=== PATIENT | male | born 1960 | race Two or more races ===

== ENCOUNTER 2020-07-21 14:15 | Outpatient (CLI) | payer BC | END 2020-07-21 23:59 | disposition home or self-care (01) | LOC: MSC 14:15 | PROVIDERS: ATTEND Internal Medicine | DX: R53.83 Other fatigue (principal); B94.8 Sequelae of other specified infectious and parasitic diseases; M06.9 Rheumatoid arthritis, unspecified; K21.9 Gastro-esophageal reflux disease without esophagitis; L65.9 Nonscarring hair loss, unspecified ==

== ENCOUNTER 2020-07-31 09:58 | Outpatient (CLI) | payer BC | END 2020-07-31 23:59 | disposition home or self-care (01) | LOC: RAD 09:58 | PROVIDERS: ATTEND Internal Medicine | DX: R53.83 Other fatigue (principal); T50.B95A Adverse effect of other viral vaccines, initial encounter; M47.814 Spondylosis without myelopathy or radiculopathy, thoracic region; X58.XXXA Exposure to other specified factors, initial encounter | CPT/HCPCS: 71046 ==

== ENCOUNTER 2020-09-03 11:44 | Outpatient (CLI) | payer BC | END 2020-09-03 23:59 | disposition home or self-care (01) | LOC: MSC 11:44 | PROVIDERS: ATTEND Internal Medicine | DX: R53.83 Other fatigue (principal); T50.B95A Adverse effect of other viral vaccines, initial encounter; Z86.16 Personal history of COVID-19; M06.9 Rheumatoid arthritis, unspecified; K21.9 Gastro-esophageal reflux disease without esophagitis; F39 Unspecified mood [affective] disorder; Z79.899 Other long term (current) drug therapy ==